=== PATIENT | male | born 1970 | race Caucasian/White ===

== ENCOUNTER 2017-03-27 18:41 | Inpatient (IN) | payer MEDICAID ==
[~2017-03-27] VITALS: Ht 162.6 cm; Wt 56.8 kg
--- NOTE | 2017-03-27 22:28 | ERA ---
ER Documentation Chief Complaint Date/Time DATE: 03/27/17 TIME: 22:27 Chief Complaint Headache HPI The patient is a 46-year-old male, presenting to the ER because of headache for 1 day. He is a very poor historian. He has been doing amphetamine. He denies chills, facial pain, neck pain, chest pain, abdominal pain, vomiting, dysuria, diarrhea. He denies smoking or drinking. Past medical history: Anemia, ventral hernia Past surgical history: None ROS All systems reviewed and are negative except as per history of present illness. Medications Home Meds Unable to Obtain Active Prescriptions or Reported Meds Allergies Allergies: Coded Allergies: No Known Drug Allergy (Verified Allergy, Unknown, 06/19/07) Physical Exam Vitals Vital Signs Date Time Temp Pulse Resp B/P Pulse Ox O2 Delivery O2 Flow Rate FiO2 03/28/17 01:00 98.3 88 16 106/61 100 Room Air 03/28/17 00:30 98.3 89 16 117/78 100 Room Air 03/27/17 19:02 103.7 125 18 141/91 97 Physical Exam Const: No acute distress. Head: Atraumatic. Eyes: Normal Conjunctiva. ENT: Normal External Ears, Nose and Mouth. Neck: Full range of motion. No meningismus. Resp: Clear to auscultation bilaterally. Cardio: Regular but tachycardic Abd: Soft, non distended, normal bowel sounds, non tender. Positive for umbilical hernia Skin: No petechiae or rashes. Back: No midline or flank tenderness. Ext: Right proximal forearm is edematous and erythematous, no crepitus Neur: Limited due to his condition Psych: Somnolent, confused Result Diagram: 03/27/17 2240 03/27/17 2240 Results 24 hrs Laboratory Tests Test 03/27/17 22:40 03/28/17 00:28 03/28/17 01:10 03/28/17 01:25 White Blood Count 21.310^3/ul Red Blood Count 5.1810^6/ul Hemoglobin 16.2g/dl Hematocrit 46.9% Mean Corpuscular Volume 90.5fl Mean Corpuscular Hemoglobin 31.3pg Mean Corpuscular Hemoglobin Concent 34.5g/dl Red Cell Distribution Width 15.0% Platelet Count 8710^3/UL Mean Platelet Volume 12.0fl Neutrophils % 75.0% Band Neutrophils % 11.0% Lymphocytes % 5.0% Monocytes % 8.0% Myelocytes % 1.0% Neutrophils # 16.010^3/ul Lymphocytes # 1.110^3/ul Monocytes # 1.710^3/ul Myelocytes # 0.2 Platelet Estimate PLT APPEAR DECREASED Prothrombin Time 15.5Sec Prothrombin Time Ratio 1.2 INR International Normalized Ratio 1.22 Activated Partial Thromboplast Time 32.4Sec Sodium Level 134mmol/L Potassium Level 3.6mmol/L Chloride Level 97mmol/L Carbon Dioxide Level 25mmol/L Anion Gap 16 Blood Urea Nitrogen 17mg/dl Creatinine 0.68mg/dl Glucose Level 124mg/dl Lactic Acid Level 2.1mmol/L 1.6mmol/L Calcium Level 9.1mg/dl Total Bilirubin 2.3mg/dl Direct Bilirubin 0.00mg/dl Indirect Bilirubin 2.3mg/dl Aspartate Amino Transf (AST/SGOT) 42IU/L Alanine Aminotransferase (ALT/SGPT) 33IU/L Alkaline Phosphatase 115IU/L Troponin I < 0.012ng/ml Total Protein 8.4g/dl Albumin 4.2g/dl Globulin 4.20g/dl Albumin/Globulin Ratio 1.00 Ethyl Alcohol Level < 10.0mg/dl CSF Glucose 70mg/dl CSF Total Protein 29mg/dl Urine Color LT. YELLOW Urine Clarity CLEAR Urine pH 6.0 Urine Specific Soso 1.025 Urine Ketones NEGATIVE Urine Nitrite NEGATIVE Urine Bilirubin NEGATIVE Urine Urobilinogen 0.2 E.U./dL Urine Leukocyte Esterase NEGATIVE Urine Hemoglobin NEGATIVE Urine Glucose NEGATIVE% Urine Total Protein NEGATIVE Urine Opiates Screen NEGATIVE Urine Barbiturates NEGATIVE Urine Amphetamines Screen POSITIVE Urine Benzodiazepines Screen NEGATIVE Urine Cocaine Screen NEGATIVE Urine Cannabinoids NEGATIVE Test 03/28/17 01:34 Bedside Urine pH (LAB) 5.5 Bedside Urine Protein (LAB) Negative Bedside Urine Glucose (UA) Negative Bedside Urine Ketones (LAB) Negative Bedside Urine Blood Trace-intact Bedside Urine Nitrite (LAB) Negative Bedside Urine Leukocyte Esterase (L Negative Current Medications Medications (Trade) Dose Ordered Sig/Ish Route PRN Reason Start Time Stop Time Status Last Admin Dose Admin Sodium Chloride (NS) 1,760 ml @ 1,760 mls/hr BOLUS X1 ONCE IV 03/27/17 23:00 03/27/17 23:59 DC 03/27/17 22:56 Acetaminophen (Tylenol Supp) 650 mg ONCE ONCE ME 03/27/17 23:00 03/27/17 23:01 DC Dexamethasone 10 mg 10 mg ONCE ONCE IV 03/28/17 01:30 03/28/17 01:31 DC 03/28/17 01:44 Ceftriaxone Sodium 50 ml @ 100 mls/hr ONCE ONCE IVPB 03/28/17 01:30 03/28/17 01:59 DC 03/28/17 02:15 Vancomycin HCl (Vancocin) 250 ml @ 125 mls/hr ONCE IVPB 03/28/17 01:30 03/28/17 03:29 Procedures/MDM [place] [id number] Radiology Main Line: [phone] DIAGNOSTIC IMAGING REPORT Patient: DEMETRI DEMPSEY : 1970 Age: 46 Sex: M MR #: [id number] DOS: 03/27/17 2239 Ordering MD: KILE MINAYA MD Location: E/R Room/Bed: PROCEDURE: XR Chest. CLINICAL INDICATION: Possible Sepsis TECHNIQUE: Single frontal view of the chest was obtained. COMPARISON: None available FINDINGS: The cardiomediastinal silhouette is normal size. Pulmonary vasculature is within normal limits. There is bibasilar atelectasis.. No signs of pleural fluid or pneumothorax are seen. The osseous structures and soft tissues are unremarkable. IMPRESSION: Hypoventilatory examination. Bibasilar atelectasis. No definite consolidation or edema. RPTAT: HBST .Yann Wen MD, Date Time Electronically viewed and signed by .Yann Wen MD, MD on 03/28/2017 00:16 .T/ CC: KIEL MINAYA MD [place] [id number] Radiology Main Line: [phone] DIAGNOSTIC IMAGING REPORT Patient: DEMETRI DEMPSEY : 1970 Age: 46 Sex: M MR #: [id number] DOS: 03/27/17 2239 Ordering MD: KIEL MINAYA MD Location: E/R Room/Bed: PROCEDURE: Noncontrast CT Head. CLINICAL INDICATION: Headache TECHNIQUE: Noncontrast CT of the head was obtained. The administered radiation dose was CTDI vol = 45 mGy, DLP = 810 mGy-cm. COMPARISON: No pertinent prior examinations were submitted for comparison. FINDINGS: The ventricles and cortical sulci are mildly enlarged. There is mild decreased attenuation within the periventricular and subcortical white matter compatible with chronic microvascular changes. There is no acute intracranial hemorrhage or extra-axial fluid collection. There is no mass effect. No midline shift is identified. There is no loss of chaparro-white differentiation to suggest acute infarction. The orbits are within normal limits. The paranasal sinuses are well aerated. No destructive osseous lesion is identified. IMPRESSION: No acute findings. Mild diffuse parenchymal volume loss and chronic microvascular changes. RPTAT: HIKT .Servando Canas MD, MD Date Time Electronically viewed and signed by .Servando Canas MD, MD on 03/28/2017 00:52 .T/ CC: KIEL MINAYA MD EKG: Read by emergency physician at 7:08 PM Rate/Rhythm: Sinus tachycardia 123 beats/min QRS, ST, T-waves: No ST elevation, no T inversion, right axis deviation Impression: Abnormal EKG EKG: Read by emergency physician at 10:41 PM Rate/Rhythm: Normal Sinus Rhythm 100 beats/min QRS, ST, T-waves: No ST elevation, no T inversion, right fonseca axis Impression: Abnormal EKG MEDICAL MAKING DECISION: The patient is a 46-year-old female, presenting with acute febrile illness of unclear etiology, associated with headache and encephalopathy, concerning for acute meningitis, acute severe sepsis, acute right forearm cellulitis. He was treated with Tylenol and for fever. He was treated with Decadron 10 mg IV 20 minutes prior to IV antibiotic to prevent neurological complication in case he has bacterial meningitis. He was then treated with Rocephin IV and vancomycin IV Admit MDM: Patient's infectious symptoms have not stabilized and the patient is at risk of rapid decompensation. The patient will be admitted for careful hydration, antibiotic therapy, and infectious source control. Severe Sepsis criteria: Infectious source: Unknown End organ damage indicated by: Lactate > 2.0 mmol/L Sepsis Management: Time of recognition of severe sepsis/septic shock:10:50 pm Within 3 hours of recognition: Blood cultures x 2 before broad-spectrum antibiotics: Yes 30 ml/kg NS bolus completed Initial lactate 2.1 Repeat lactate pending Critical Care: Critical care time 35 minutes Emergent fluid management while maintaining close respiratory support. Provision of immediate and broad-spectrum antibiotic therapy. Simultaneous assessment for possible sources in order to direct targeted therapy. Consideration for invasive and chemical support to prevent cardiopulmonary collapse. Septic Shock Assessment: Any lactic acid > 4.0 no Persistent hypotension (SBP < 90 or 40 mmHg drop, MAP < 65) despite 30 mL/kg IV fluid bolusno Lumbar Puncture by me: Patient consented, time out performed, sterilely prepped/draped, anesthetized locally. Anesthesia: 1% lidocaine locally Location: One interspace below the iliac crest Technique: 22 gauge needle with stylet for entry and removal of needle Results: Clear CSF fluid No post procedure complications, bleeding, numbness or weakness. Departure Diagnosis: Primary Impression: Severe sepsis Additional Impressions: Acute febrile illness Right forearm cellulitis Amphetamine abuse Condition: Critical Comments I discussed the findings with the patient. I discussed the patient with the on- call hospitalist Dr. Arnold who was made aware of the lab, the treatment, the patient condition. The patient is admitted to telemetry at 1:30 AM KIEL MINAYA MD March 27, 2017 22:28
[2017-03-27] MEDS ORDERED: SOD CHLORIDE 0.9% IV ONE (23:00)
[2017-03-27] MEDS ORDERED: ACETAMINOPHEN 650 MG SUPP PR ONE (23:00)
[2017-03-27 23:01] LABS: ADD SCAN DIFF NO
[2017-03-27 23:07] LABS: ABNORMAL IP MESSAGE 1; HEMATOCRIT 46.9 % (42.0-52.0); HEMOGLOBIN 16.2 g/dl (14.0-18.0); MEAN CORPUSCULAR HEMOGLOBIN 31.3 pg (29.0-33.0); MEAN CORPUSCULAR HGB CONC 34.5 g/dl (32.0-37.0); MEAN CORPUSCULAR VOLUME 90.5 fl (82.0-101.0); PLATELET COUNT 87 10^3/UL (140-415); RED BLOOD COUNT 5.18 10^6/ul (4.70-6.10); WHITE BLOOD COUNT 21.3 10^3/ul (4.8-10.8)
[2017-03-27 23:24] LABS: INR 1.22; PROTIME 15.5 Sec (12.2-14.2); PT RATIO 1.2
[2017-03-27 23:25] LABS: PARTIAL THROMBOPLASTIN TIME 32.4 Sec (25.0-35.0)
[2017-03-27 23:32] LABS: ALBUMIN 4.2 g/dl (3.3-4.9); CHLORIDE 97 mmol/L (97-110)
[2017-03-27 23:33] LABS: POTASSIUM 3.6 mmol/L (3.5-5.1); SODIUM 134 mmol/L (135-144)
[2017-03-27 23:35] LABS: ALANINE AMINOTRANSFERASE 33 IU/L (13-69); ALKALINE PHOSPHATASE 115 IU/L (42-121); ANION GAP 16 (8-16); ASPARTATE AMINO TRANSFERASE 42 IU/L (15-46); BILIRUBIN,INDIRECT 2.3 mg/dl (0-1.1); BILIRUBIN,TOTAL 2.3 mg/dl (0.2-1.3); BLOOD UREA NITROGEN 17 mg/dl (7-20); CARBON DIOXIDE 25 mmol/L (21-31); CREATININE 0.68 mg/dl (0.61-1.24); TOTAL PROTEIN 8.4 g/dl (6.1-8.1)
[2017-03-27 23:36] LABS: CALCIUM 9.1 mg/dl (8.4-10.2); GLUCOSE 124 mg/dl (70-220)
[2017-03-27 23:50] LABS: TROPONIN-I < 0.012 ng/ml (0.00-0.12)
[2017-03-28 00:05] LABS: LYMPHOCYTES # 1.1 10^3/ul (0.8-2.9); MONOCYTE # 1.7 10^3/ul (0.3-0.9); MYELOCYTES # 0.2
[2017-03-28 00:06] LABS: PLATELET ESTIMATE PLT APPEAR DECREASED
--- NOTE | 2017-03-28 00:16 | RADRPT ---
PROCEDURE: XR Chest. CLINICAL INDICATION: Possible Sepsis TECHNIQUE: Single frontal view of the chest was obtained. COMPARISON: None available FINDINGS: The cardiomediastinal silhouette is normal size. Pulmonary vasculature is within normal limits. Th ere is bibasilar atelectasis.. No signs of pleural fluid or pneumothorax are seen. The osseous structures and soft tissues are unre markable. IMPRESSION: Hypoventilatory examination. Bibasilar atelectasis. No definite consolidation or edema. RPTAT: HBST .Yann Wen MD, MD Date Time Electronically viewed and signed by .Yann Wen MD, on 03/28/2017 00:16 .T/
--- NOTE | 2017-03-28 00:52 | RADRPT ---
PROCEDURE: Noncontrast CT Head. CLINICAL INDICATION: Headache TECHNIQUE: Noncontrast CT of the head was obtained. The administered radiation dose was CTDI vol = 45 mGy, DLP = 810 mGy-cm. COMPARISON: No pertinent prior examinations were submitted for comparison. FINDINGS: The ventricles and cortical sulci are mildly enlarged. There is mild decreased attenuation within t he periventricular and subcortical white matter compatible with chronic microvascular changes. There is no acute intracranial hemorrhage or extra-axial fluid collection. There is no mass effect . No midline shift is identified. There is no loss of chaparro-white differentiation to suggest acute in farction. The orbits are within normal limits. The paranasal sinuses are well aerated. No destructive osseous lesion is identified. IMPRESSION: No acute findings. Mild diffuse parenchymal volume loss and chronic microvascular changes. RPTAT: HIKT .Servando Canas MD, MD Date Time Electronically viewed and signed by .Servando Canas MD, on 03/28/2017 00:52 .T/
[2017-03-28] MEDS ORDERED: VANCOMYCIN 1 GM (PMX) 250 ML IVPB SCH (01:30)
[2017-03-28] MEDS ORDERED: CEFTRIAXONE 2 GM/50 ML (PMX) 50 ML IVPB ONE (01:30)
[2017-03-28] MEDS ORDERED: DEXAMETHASONE 10 MG/ML 1 ML INJ IV ONE (01:30)
[2017-03-28 01:33] LABS: URINE BLOOD (Dip) POC Trace-intact (NEGATIVE)
[2017-03-28 01:56] LABS: # OF CELLS COUNTED 100
[2017-03-28 02:02] LABS: ADD UMIC NO; URINE BILIRUBIN (Dip) NEGATIVE (NEGATIVE); URINE BLOOD (Dip) NEGATIVE (NEGATIVE); URINE COLOR LT. YELLOW (YELLOW); URINE GLUCOSE (Dip) NEGATIVE (NEGATIVE); URINE KETONES (Dip) NEGATIVE (NEGATIVE); URINE LEUKOCYTE ESTERASE (Dip) NEGATIVE (NEGATIVE); URINE NITRITE (Dip) NEGATIVE (NEGATIVE); URINE TOTAL PROTEIN (Dip) NEGATIVE (NEGATIVE); URINE UROBILINOGEN (Dip) 0.2 E.U./dL (0.1-1.0)
[2017-03-28 02:25] LABS: GLUCOSE,CSF 70 mg/dl (50-80)
[2017-03-28 02:26] LABS: BARBITURATES NEGATIVE (NEGATIVE); BENZODIAZEPINES NEGATIVE (NEGATIVE); CANNABINOIDS NEGATIVE (NEGATIVE); COCAINE NEGATIVE (NEGATIVE); OPIATES NEGATIVE (NEGATIVE)
[2017-03-28 04:02] LABS: CSF COLOR PINKISH
[2017-03-28 04:03] LABS: CSF#TUBES REC'D 4
[2017-03-28 04:04] LABS: %CREANATED RBC CSF 0 %; CSF#TUBE COUNT TUBE#4
--- NOTE | 2017-03-28 06:25 | HP ---
Date/Time of Note Date/Time of Note DATE: 03/28/17 TIME: 06:18 Assessment/Plan VTE Prophylaxis VTE Prophylaxis Intervention: SCD's Lines/Catheters IV Catheter Type (from [facility], [place]): Peripheral IV Central line still needed: No Urinary Cath still in place: No Assessment/Plan Chief Complaint/Hosp Course This is a 46-year-old male is being admitted to telemetry floor for: #1 sepsis: Suspected meningitis versus endocarditis versus cellulitis. Patient was tachycardic and febrile. White blood cell count of 21 with a bandemia of 11. Patient has a history of IV drug use and he used amphetamines today before he came to the ER. Patient currently right now does not display any signs of nuchal rigidity. However he did state that he had a headache. CSF samples were drawn via lumbar puncture by the ED physician. Blood cultures urine cultures pending. Was given a dose of Vanco and ceftriaxone in the ED. Based on patient's history of IV drug use and current clinical condition. We will start him on empiric antibiotic coverage for suspected meningitis with vancomycin, ampicillin, and ceftriaxone. Will consult infectious disease. X- ray and CT scan did not show any acute findings. Will also order HIV, echocardiogram.Tylenol for fevers. #2 Leukocytosis: Possibility of meningitis versus bacteremia versus endocarditis versus cellulitis. Currently on empiric antibiotics. Will consult ID #[id number] Amphetamine abuse: Patient reports recent use of amphetamine via IV. #4 cellulitis of the right upper extremity: On empiric antibiotics #5 DVT and GI prophylaxis SCDs and acid fabio Problems: HPI/ROS Admit Date/Time Admit Date/Time 03/27/2017 Hx of Present Illness The patient is a 46-year-old male, presenting to the ER because of headache for 1 day. Patient is somnolent but easily arousable however he is a very poor historian. He reports IV drug use and recently used amphetamines as early as today. He denies chills, facial pain, neck pain, chest pain, abdominal pain, vomiting, dysuria, diarrhea. He denies smoking or drinking. Allergies: None Medications: None ROS Review of systems: Unable to obtain secondary to patient's clinical condition PMH/Family/Social Past Medical History Ventral hernia, anemia Past Surgical History Unable to obtain secondary to patient's clinical condition Family History Significant Family History: other (Unable to obtain secondary to patient's clinical condition) Social History Smoking Status: Current every day smoker Drug Use: other (IV drug use, amphetamine) Exam/Review of Systems Vital Signs Vitals Vital Signs Date Time Temp Pulse Resp B/P Pulse Ox O2 Delivery O2 Flow Rate FiO2 03/28/17 05:43 78 18 129/83 98 Room Air 03/28/17 01:00 98.3 Exam Exam General: Patient lying in bed, no acute distress, somnolent slightly difficult to arouse HEENT: Atraumatic, normocephalic. The pupils are equal, round and reactive. Extraocular motor are intact, poor dentition Neck: Supple with full range of motion. No rigidity or meningismus Chest: Nontender Lungs: Clear to auscultation bilaterally no crackles rales or wheezing Heart: Normal S1-S2, Regular rhythm and rate. No murmur, Abdomen: Soft , nontender, nondistended , bowel sounds are present. No guarding no rebound tenderness , No masses or organomegaly. No costovertebral temporal angle mass Extremities: right upper extremity erythema, warmth, redness Neurologic: Somnolent, slightly difficult to arouse. Patient can verbalize answers when vigorously awakened Additional Comments [place] [id number] Radiology Main Line: [phone] DIAGNOSTIC IMAGING REPORT Patient: DEMETRI DEMPSEY : 1970 Age: 46 Sex: M MR #: [id number] DOS: 03/27/17 2239 Ordering MD: KIEL MINAYA MD Location: E/R Room/Bed: PROCEDURE: XR Chest. CLINICAL INDICATION: Possible Sepsis TECHNIQUE: Single frontal view of the chest was obtained. COMPARISON: None available FINDINGS: The cardiomediastinal silhouette is normal size. Pulmonary vasculature is within normal limits. There is bibasilar atelectasis.. No signs of pleural fluid or pneumothorax are seen. The osseous structures and soft tissues are unremarkable. IMPRESSION: Hypoventilatory examination. Bibasilar atelectasis. No definite consolidation or edema. RPTAT: HBST .Yann Wen MD, MD Date Time Electronically viewed and signed by .Yann Wen MD, MD on 03/28/2017 00:16 .T/ CC: KIEL MINAYA MD [place] [id number] Radiology Main Line: [phone] DIAGNOSTIC IMAGING REPORT Patient: DEMETRI DEMPSEY : 1970 Age: 46 Sex: M MR #: [id number] DOS: 03/27/179 Ordering MD: KIEL MINAYA MD Location: E/R Room/Bed: PROCEDURE: Noncontrast CT Head. CLINICAL INDICATION: Headache TECHNIQUE: Noncontrast CT of the head was obtained. The administered radiation dose was CTDI vol = 45 mGy, DLP = 810 mGy-cm. COMPARISON: No pertinent prior examinations were submitted for comparison. FINDINGS: The ventricles and cortical sulci are mildly enlarged. There is mild decreased attenuation within the periventricular and subcortical white matter compatible with chronic microvascular changes. There is no acute intracranial hemorrhage or extra-axial fluid collection. There is no mass effect. No midline shift is identified. There is no loss of chaparro-white differentiation to suggest acute infarction. The orbits are within normal limits. The paranasal sinuses are well aerated. No destructive osseous lesion is identified. IMPRESSION: No acute findings. Mild diffuse parenchymal volume loss and chronic microvascular changes. RPTAT: HIKT .Servando Canas MD, Date Time Electronically viewed and signed by .Servando Canas MD, on 03/28/2017 00:52 .T/ CC: KIEL MINAYA MD Rate/Rhythm: Normal Sinus Rhythm 100 beats/min QRS, ST, T-waves: No ST elevation, no T inversion, right fonseca axis Labs Result Diagram: 03/27/17 2245 03/27/17 2240 Medications Medications Current Medications Ampicillin 100 ml @ 100 mls/hr Q6 IVPB ; Start 03/28/17 at 06:30; Status UNV Ceftriaxone Sodium (Rocephin) 50 ml @ 100 mls/hr BID IVPB ; Start 03/28/17 at 09 :00; Status UNV ADELAIDA HATFIELD March 28, 2017 06:25
[2017-03-28] MEDS ORDERED: VANCOMYCIN IV PER PHARMACY XX SCH (06:30)
[2017-03-28] MEDS ORDERED: ONDANSETRON 4 MG INJ IV PRN (06:30)
[2017-03-28] MEDS ORDERED: AMPICILLIN 2 GM/NS (PMX) 100 ML IVPB SCH (06:30)
[2017-03-28] MEDS ORDERED: NACL 0.9% 3 ML SYG IV SCH (06:30)
[2017-03-28] MEDS: SOD CHLORIDE 0.9% 1,000 ML IV SCH ×2 (06:46→18:51)
[2017-03-28] MEDS: FAMOTIDINE 20 MG INJ IV SCH ×2 (08:13→20:03)
[2017-03-28 08:25] LABS: ADD SCAN DIFF NO
[2017-03-28 08:43] LABS: ABNORMAL IP MESSAGE 1; BASOPHILS % 0.1 % (0.0-2.0); HEMATOCRIT 41.7 % (42.0-52.0); HEMOGLOBIN 14.6 g/dl (14.0-18.0); LYMPHOCYTES # 0.7 10^3/ul (0.8-2.9); LYMPHOCYTES % 3.6 % (15.0-51.0); MEAN CORPUSCULAR HEMOGLOBIN 31.8 pg (29.0-33.0); MEAN CORPUSCULAR VOLUME 90.8 fl (82.0-101.0); MEAN PLATELET VOLUME 11.8 fl (7.4-10.4); MONOCYTE # 0.3 10^3/ul (0.3-0.9); MONOCYTES % 1.7 % (0.0-11.0); NEUTROPHIL # 18.1 10^3/ul (1.6-7.5); NEUTROPHILS % 93.5 % (39.0-77.0); RED BLOOD COUNT 4.59 10^6/ul (4.70-6.10); RED CELL DISTRIBUTION WIDTH 14.9 % (11.5-14.5); WHITE BLOOD COUNT 19.3 10^3/ul (4.8-10.8)
[2017-03-28 08:46] LABS: ALBUMIN 3.4 g/dl (3.3-4.9); ALBUMIN/GLOBULIN RATIO 0.94; BILIRUBIN,INDIRECT 1.8 mg/dl (0-1.1); BILIRUBIN,TOTAL 1.8 mg/dl (0.2-1.3); CALCIUM 8.1 mg/dl (8.4-10.2); CREATININE 0.5 mg/dl (0.61-1.24); MAGNESIUM 1.6 mg/dl (1.7-2.5)
[2017-03-28 08:53] LABS: PLATELET COUNT 71 10^3/UL (140-415)
[2017-03-28] MEDS ORDERED: CEFTRIAXONE 2 GM/50 ML (PMX) 50 ML IVPB SCH (09:00)
[2017-03-28] MEDS ORDERED: VANCOMYCIN 850 MG in SOD CHLORIDE 0.9% 250 ML IVPB SCH (10:00)
[2017-03-28 13:16] VITALS: TEMP 97.9
--- NOTE | 2017-03-28 13:21 | CONS ---
DATE OF ADMISSION: 03/27/2017 DATE OF CONSULTATION: 03/28/2017 TYPE OF CONSULTATION: Infectious Disease. REASON FOR CONSULTATION: Antibiotic management. HISTORY OF PRESENT ILLNESS: Vignesh Maciel is a 46-year-old male who comes in with a h eadache of 1 day duration. The patient is somnolent but easily arousable. He reports IV drug use a nd recently used amphetamines as early as today. There is no fever or chills. No nausea, vomiting or diarrhea. PAST MEDICAL HISTORY: The patient has a ventral hernia and anemia. FAMILY HISTORY: Noncontributory. SOCIAL HISTORY: He is an every day smoker and uses IV drugs such as amphetamines. PHYSICAL EXAMINATION: GENERAL: The patient is in no acute distress, somnolent but arousable. SKIN: He has some cellulitis of the right upper extremity. HEENT: Within normal limits. NECK: Supple without nuchal rigidity. LYMPH NODES: None palpable. CHEST: Decreased breath sounds at the bases. HEART: Without murmur or gallop. ABDOMEN: Soft, nontender, without organosplenomegaly or masses. EXTREMITIES: As noted, right upper extremity erythema, warmth and redness. RECTAL AND GENITAL: Deferred. NEUROLOGICAL: No focal neurological abnormality. IMAGING: Chest x-ray shows bibasilar atelectasis, hypoventilatory examination. A CT scan of the he ad was done, no acute findings, mild diffuse parenchymal volume loss and chronic microvascular ayala es. ANCILLARY LABORATORY DATA: His white count on admission was 21.3, today it is 19.3, H and H of 14.6 and 41.7 and platelet count of 71,000. BUN and creatinine 15/0.5. Urine is negative for nitrite a nd leukocyte esterase. HIV negative. A spinal tap was done and showed only 2 white cells per high powered field and 1000 RBCs which could indicate just a traumatic tap since the CT scan was negative for any evidence of hemorrhage. IMPRESSION AND PLAN: The patient was placed on vancomycin, ceftriaxone and ampicillin. We probably can just continue him on the vancomycin. There is no evidence really meningitis at this point, he probably has cellulitis. I will dictate my findings to the hospitalist. Dictated By: MYLES GIBBS MD, JD/IVAN Conf#: [id number] [facility]#: [id number]
--- NOTE | 2017-03-28 15:39 | PN ---
DATE: 03/28/2017 SUBJECTIVE: Mr. Maciel remains stable this morning in the ER pending admission. Denies any fe simran or chills. No chest pain or palpitations. He is drowsy but arousable. PHYSICAL EXAMINATION: VITAL SIGNS: Temperature 97, pulse 67, blood pressure 112/78, O2 saturation 96% on room air. NECK: Supple. No JVD or lymphadenopathy. CARDIAC: S1, S2, no added sounds or murmurs. CHEST: Diminished air entry bilaterally. ABDOMEN: Soft, nontender. No guarding or rebound. EXTREMITIES: No cyanosis, clubbing or edema. NEUROLOGIC: He does have erythema of right arm in the antecubital fossa. LABORATORY DATA: White count 19.3, hemoglobin 14, platelets of 71. Lactic acid down to 1.5. INR 1 .22. Utox was positive for amphetamines. CSF showed normal glucose, low protein, 2 white cells, 50 % neutrophils. IMPRESSION AND PLAN: 1. Likely upper extremity cellulitis from recent methamphetamine injection site. 2. Unlikely to have meningitis. LP unremarkable. 3. Human immunodeficiency virus negative. 4. History of polysubstance abuse. PLAN: 1. Continue current antibiotics. 2. IV fluids. 3. Encourage p.o. intake. 4. Hopefully, discharge soon when cellulitis is improving. Dictated By: TWYLA NAVARRO/IVAN Conf#: [id number] DID#: [id number]
[2017-03-28 17:14] VITALS: BP 148/90; PULSE 75; RESP 16; Ht 162.6 cm; Wt 56.8 kg
--- NOTE | 2017-03-28 17:22 | RADRPT ---
Echocardiogram Report Patient Name: DEMETRI DEMPSEY Gender: Male Date: 1970 Study Date: 28-Mar-2017 Automatic Lathe Operator: IRINA [facility] Location: [facility] Ref. Physician: ADELAIDA HATFIELD Quality: Technically Difficult Study Procedures: Transthoracic echocardiogram with complete 2D, M-Mode, and doppler examination. Indications: IV DRUG USE, SEPSIS, R/O ENDOCARDITIS. 2D/M Mode Doppler Measurement Value Normal Ranges Measurement Value Normal Ranges AoR Diam MM 2.0 cm AV Peak Eliseo 1.3 m/sec LA/Ao MM 2.0 AV Peak PG 7.3 mmHg LA Dimen MM 3.9 cm LVOT Peak [place]ise[place] 1.1 m/sec LVIDd 2D 3.6 3.5 - 5.6 cm LVOT Peak PG 4.6 mmHg LVIDs 2D 2.4 2.1 - 4.1 cm MV E Peak Eliseo 0.7 m/sec LVPWd 2D 1.2 0.6 - 1.1 cm MV A Peak Eliseo 0.6 m/sec IVSd 2D 1.3 0.6 - 1.1 cm MV E/A 1.2 AoR Diam 2D 1.9 2.0 - 3.7 cm MV Decel Time 228 msec EDV 2D 55.8 cm3 MV Decel [place] 3 ESV 2D 13.6 cm3 MV E/A 1.2 LA Dimen 2D 3.9 2.3 - 4.0 cm Findings Left Ventricle: Normal left ventricular systolic function. Normal left ventricular cavity size. Mild concentric left ventricular hypertrophy. Ejection fraction is visually estimated at 65 %. Tissue Doppler/Mitral Doppler indices are consistent with impaired relaxation (Stage I diastolic dysfunction). Right Ventricle: Normal right ventricular size. Normal right ventricular systolic function. Left Atrium: The left atrium is normal in size. Right Atrium: The right atrium is normal in size. Mitral Valve: Mild mitral annular calcification. Trace mitral regurgitation. Aortic Valve: Normal appearance of the aortic valve. No significant aortic stenosis or insufficiency. Tricuspid Valve: Tricuspid valve not well visualized. Echo dense structure seen near the base of the atrial side of the leaflet. There is trace tricuspid regurgitation. Pulmonic Valve: There is trace pulmonic regurgitation. Pericardium: Normal pericardium with no significant pericardial effusion. Aorta: Normal aortic root. IVC: Normal size and normal respiratory collapse consistent with normal right atrial pressure. Conclusions Normal left ventricular systolic function. Normal left ventricular cavity size. Mild concentric left ventricular hypertrophy. Ejection fraction is visually estimated at 65 %. Tissue Doppler/Mitral Doppler indices are consistent with impaired relaxation (Stage I diastolic dysfunction). Normal right ventricular size. Normal right ventricular systolic function. The left atrium is normal in size. The right atrium is normal in size. Tricuspid valve not well visualized. Echo dense structure seen near the base of the atrial side of the leaflet differential includes vegetation, thrombus versus normal variant. There is trace tricuspid regurgitation. No significant valvular stenosis or regurgitation seen. Normal pericardium with no significant pericardial effusion. Electronically Signed By: Sotero Marie 28-Mar-2017 17:21:57 -0700 Patient Name: DEMETRI DEMPSEY Study Date: 28-Mar-2017 [id number]
--- NOTE | 2017-03-28 17:37 | CONS ---
Date/Time of Note Date/Time of Note DATE: 03/28/17 TIME: 17:32 Assessment/Plan Assessment/Plan Additional Assessment/Plan SIRS Cellulitis Preserved ejection fraction High concern for endocarditis IV drug abuse -Patient's echocardiogram reviewed, echo dense structure seen at the base of the tricuspid valve on the atrial side. Unfortunately, this location is not well-visualized with transesophageal echocardiogram. Valve leaflets are grossly normal with no significant regurgitation. Given the history, echo findings, high suspicion for endocarditis. Awaiting blood cultures, would continue antibiotics as per infectious disease. Consultation Date/Type/Reason Admit Date/Time 03/27/2017 Type of Consultation: cv Reason for Consultation Cardiac evaluation Hx of Present Illness This is a 46-year-old male with no significant past medical history who presents with altered mental status initially, fevers, chills and right upper extremity discomfort. Patient with alcohol use, marijuana use and IV methamphetamine use. He states he attempted to inject into a vein recently but was unable to and injected under the skin. Since then, he has been having pain in his right upper arm as well as fevers and chills over the past couple days. He otherwise denies any past medical history or any cardiac history. He was incarcerated for a number of years as well. 12 point review of systems was performed with all pertinent positives and negatives mentioned above and all else is negative Past Medical History Medical History: no pertinent history Past Surgical History Past Surgical Hx: no surgical history Family History Significant Family History: no pertinent family hx Social History Yes Smoking Status: Current every day smoker Drug Use: marijuana, other (IV drug use, amphetamine) Exam/Review of Systems Vital Signs Vitals Vital Signs Date Time Temp Pulse Resp B/P Pulse Ox O2 Delivery O2 Flow Rate FiO2 03/28/17 16:11 95 17 118/81 95 Room Air 03/28/17 13:16 97.9 Exam Sleeping but arousable, follows commands, no apparent distress Constitutional: alert Head: normocephalic Neck: supple Respiratory: clear to auscultation, normal air movement Cardiovascular: other (S1-S2 heard), regular rate and rhythm Gastrointestinal: bowel sounds, non-tender, other (No guarding), soft Extremities: other (Erythema right upper extremity, no lower extremity edema) Results Result Diagram: 03/28/17 0802 03/28/17 0802 Results 24 hrs Laboratory Tests Test 03/27/17 22:40 03/28/17 00:28 03/28/17 01:10 03/28/17 01:25 White Blood Count 21.3 H Red Blood Count 5.18 Hemoglobin 16.2 Hematocrit 46.9 Mean Corpuscular Volume 90.5 Mean Corpuscular Hemoglobin 31.3 Mean Corpuscular Hemoglobin Concent 34.5 Red Cell Distribution Width 15.0 H Platelet Count 87 L Mean Platelet Volume 12.0 H Neutrophils % 75.0 Band Neutrophils % 11.0 H Lymphocytes % 5.0 L Monocytes % 8.0 Myelocytes % 1.0 H Neutrophils # 16.0 H Lymphocytes # 1.1 Monocytes # 1.7 H Myelocytes # 0.2 Platelet Estimate PLT APPEAR DECREASED Prothrombin Time 15.5 H Prothrombin Time Ratio 1.2 INR International Normalized Ratio 1.22 Activated Partial Thromboplast Time 32.4 Sodium Level 134 L Potassium Level 3.6 Chloride Level 97 Carbon Dioxide Level 25 Anion Gap 16 Blood Urea Nitrogen 17 Creatinine 0.68 Glucose Level 124 Lactic Acid Level 2.1 1.6 Calcium Level 9.1 Total Bilirubin 2.3 H Direct Bilirubin 0.00 Indirect Bilirubin 2.3 H Aspartate Amino Transf (AST/SGOT) 42 Alanine Aminotransferase (ALT/SGPT) 33 Alkaline Phosphatase 115 Troponin I < 0.012 Total Protein 8.4 H Albumin 4.2 Globulin 4.20 H Albumin/Globulin Ratio 1.00 Ethyl Alcohol Level < 10.0 CSF Tubes Submitted 4 CSF Volume 5.0 CSF Appearance SLIGHTLY HAZY CSF Color PINKISH CSF WBC 2 CSF RBC 1000 H CSF Cell Count Tube # TUBE#4 CSF Total Cells Counted 100 CSF Neutrophils % 56 CSF Lymphocytes % 34 CSF Monocytes % 10 CSF Crenated Cells 0 CSF Glucose 70 CSF Total Protein 29 Urine Color LT. YELLOW Urine Clarity CLEAR Urine pH 6.0 Urine Specific [place] 1.025 Urine Ketones NEGATIVE Urine Nitrite NEGATIVE Urine Bilirubin NEGATIVE Urine Urobilinogen 0.2 E.U./dL Urine Leukocyte Esterase NEGATIVE Urine Hemoglobin NEGATIVE Urine Glucose NEGATIVE Urine Total Protein NEGATIVE Urine Opiates Screen NEGATIVE Urine Barbiturates NEGATIVE Urine Amphetamines Screen POSITIVE Urine Benzodiazepines Screen NEGATIVE Urine Cocaine Screen NEGATIVE Urine Cannabinoids NEGATIVE Test 03/28/17 01:34 03/28/17 04:15 03/28/17 08:02 Bedside Urine pH (LAB) 5.5 Bedside Urine Protein (LAB) Negative Bedside Urine Glucose (UA) Negative Bedside Urine Ketones (LAB) Negative Bedside Urine Blood Trace-intact H Bedside Urine Nitrite (LAB) Negative Bedside Urine Leukocyte Esterase (L Negative Lactic Acid Level 1.5 White Blood Count 19.3 H Red Blood Count 4.59 L Hemoglobin 14.6 Hematocrit 41.7 L Mean Corpuscular Volume 90.8 Mean Corpuscular Hemoglobin 31.8 Mean Corpuscular Hemoglobin Concent 35.0 Red Cell Distribution Width 14.9 H Platelet Count 71 L Mean Platelet Volume 11.8 H Neutrophils % 93.5 H Lymphocytes % 3.6 L Monocytes % 1.7 Eosinophils % 0.0 Basophils % 0.1 Nucleated Red Blood Cells % 0.0 Neutrophils # 18.1 H Lymphocytes # 0.7 L Monocytes # 0.3 Eosinophils # 0.0 Basophils # 0.0 Nucleated Red Blood Cells # 0.0 Sodium Level 134 L Potassium Level 4.0 Chloride Level 106 Carbon Dioxide Level 23 Anion Gap 9 # Blood Urea Nitrogen 15 Creatinine 0.50 L Glucose Level 151 Calcium Level 8.1 L Magnesium Level 1.6 L Total Bilirubin 1.8 H Direct Bilirubin 0.00 Indirect Bilirubin 1.8 H Aspartate Amino Transf (AST/SGOT) 29 Alanine Aminotransferase (ALT/SGPT) 35 Alkaline Phosphatase 94 Total Protein 7.0 # Albumin 3.4 Globulin 3.60 H Albumin/Globulin Ratio 0.94 HIV (1&2) Antibody NEGATIVE Medications Medications Current Medications Sodium Chloride (NS) 1,000 ml @ 80 mls/hr [id number] IV Last administered on 06:46; Admin Dose 80 MLS/HR; Start 03/28/17 at 06:15 Ondansetron HCl (Zofran Inj) 4 mg Q6H PRN IV NAUSEA AND/OR VOMITING; Start 03/28 at 06:30 Famotidine 20 mg 20 mg Q12 IV Last administered on 03/28/17 08:13; Admin Dose 20 MG; Start 03/28/17 at 09:00 Vancomycin HCl (Vancocin) 250 ml @ 125 mls/hr Q12H IVPB ; Start 03/28/17 at 21: 00 Procedures Procedures ECG demonstrates sinus rhythm at 100 bpm, normal QRS duration, no significant ischemic STT wave abnormalities Sotero Marie DO March 28, 2017 17:37
[2017-03-28] MEDS ORDERED: VANCOMYCIN 1 GM in NS 250 ML IVPB SCH (21:00)
[2017-03-28 21:27] VITALS: BP 117/67; RESP 17
[2017-03-28] MEDS: VANCOMYCIN 1 GM in NS 250 ML IVPB SCH (21:27)
[2017-03-29] MEDS: SOD CHLORIDE 0.9% 1,000 ML IV SCH ×2 (07:15→14:02)
[2017-03-29 09:00] VITALS: BP 135/78; RESP 18
[2017-03-29] MEDS: VANCOMYCIN 1 GM in NS 250 ML IVPB SCH ×2 (09:03→22:00)
[2017-03-29] MEDS: FAMOTIDINE 20 MG INJ IV SCH ×2 (09:04→21:57)
--- NOTE | 2017-03-29 09:18 | PN ---
Date/Time of Note Date/Time of Note DATE: 03/29/17 TIME: 09:16 Assessment/Plan VTE Prophylaxis VTE Prophylaxis Intervention: heparin Lines/Catheters IV [facility]ter Type (from [facility]): Peripheral IV Urinary Cath still in place: No Assessment/Plan Problems: (1) Methamphetamine abuse Status: Chronic Comment: This gentleman will be checked for exposure to hepatitis B and C. There is a real concern that he has given himself tricuspid valve endocarditis. Cardiology is on the case blood cultures are pending. Were very likely going to need a transesophageal echocardiogram of this evaluation. (2) Diastolic dysfunction Status: Chronic Comment: Noted. (3) Right forearm cellulitis Status: Acute Comment: The cellulitis is responding nicely to antibiotics. The question here is whether or not this is also endocarditis. (4) Severe sepsis Status: Acute Comment: He presented with severe sepsis with altered mental status tachycardia fevers markedly elevated white blood cell count. This is not yet resolved and given the somewhat slow resolution of quite concerned that the diagnosis is not cellulitis but is in fact endocarditis Subjective 24 Hr Interval Summary Free Text/Dictation Patient reports his headache is resolved. However he is having right goers and sweats. Constitutional: chills, diaphoresis Respiratory: no complaints Cardiovascular: no complaints Gastrointestinal: no complaints Genitourinary: no complaints Exam/Review of Systems Vital Signs Vitals Vital Signs Date Time Temp Pulse Resp B/P Pulse Ox O2 Delivery O2 Flow Rate FiO2 03/28/17 21:27 97.4 83 17 117/67 100 03/28/17 17:14 Room Air Intake and Output 03/28/17 03/28/17 03/29/17 15:00 23:00 07:00 Intake Total 250 ml 1450 ml Output Total 800 ml Balance 250 ml 650 ml Exam Constitutional: alert, oriented Neck: non-tender, supple Respiratory: clear to auscultation, normal air movement Cardiovascular: nl pulses, other (See echo report and cardiology consult note) , regular rate and rhythm Results Result Diagram: 03/28/17 0802 03/28/17 0802 Results 24 hrs Laboratory Tests Test 03/29/17 05:35 Hemoglobin A1c 5.1 Medications Medications Current Medications Sodium Chloride (NS) 1,000 ml @ 80 mls/hr [id number] IV Last administered on t 18:51; Admin Dose 80 MLS/HR; Start 5/5/17 at 06:15 Ondansetron HCl (Zofran Inj) 4 mg Q6H PRN IV NAUSEA AND/OR VOMITING; Start 03/28 at 06:30 Famotidine 20 mg 20 mg Q12 IV Last administered on 03/28/17 20:03; Admin Dose 20 MG; Start 03/28/17 at 09:00 Vancomycin HCl (Vancocin) 250 ml @ 125 mls/hr Q12H IVPB Last administered on 21:27; Admin Dose 125 MLS/HR; Start 03/28/17 at 21:00 KYLEE MATTHEW MD March 29, 2017 09:18
[2017-03-29] MEDS ORDERED: CEFTRIAXONE 2 GM/50 ML (PMX) 50 ML IVPB SCH (20:00)
[2017-03-29 21:55] VITALS: BP 121/77; PULSE 65; RESP 18
[2017-03-30] MEDS: CEFTRIAXONE 2 GM/NS 50 ML IVPB SCH (00:42)
--- NOTE | 2017-03-30 04:17 | PN ---
DATE: 03/29/2017 SUBJECTIVE: No acute changes. The patient is alert, lying comfortably in bed, complaining of right upper extremity pain. No labs this morning. MICROBIOLOGY: Blood, urine culture, and CSF cultures negative. ANTIMICROBIALS: The patient is on IV vancomycin. OBJECTIVE: GENERAL: Well-developed, well-nourished, middle-aged man who is alert, in no distress. HEENT: Head atraumatic, normocephalic. Sclerae anicteric. Buccal mucosa dry. NECK: Supple, trachea midline. CHEST: Rise symmetrical. Breath sounds clear. HEART: S1, S2. ABDOMEN: Soft, bowel tones present. EXTREMITIES: With right upper extremity edema and erythema. ASSESSMENT: 1. Systemic inflammatory response syndrome with fevers and leukocytosis. 2. Right upper extremity cellulitis secondary to self injection. 3. Polysubstance abuse. 4. Status post encephalopathy. 5. Questionable tricuspid valve vegetation, as per 2D echo. PLAN: We are going to continue the patient on vancomycin, add Rocephin, keep right upper extremity elevated on 3 pillows, consider JOLANTA, and follow cardiology recommendations. Dictated By: CJ THOMPSON AUXILIARY ENGINEER for MYLES KELLY/NTS Conf#: [id number] DID#: [id number]
[2017-03-30] MEDS: SOD CHLORIDE 0.9% 1,000 ML IV SCH (05:02)
[2017-03-30] MEDS ORDERED: VANCOMYCIN 1.5 GM in SOD CHLORIDE 0.9% 250 ML IVPB SCH (06:00)
[2017-03-30 08:05] VITALS: BP 131/83; RESP 18
[2017-03-30] MEDS: FAMOTIDINE 20 MG INJ IV SCH (08:06)
--- NOTE | 2017-03-30 13:03 | PN ---
Date/Time of Note Date/Time of Note DATE: 03/30/17 TIME: 13:02 Assessment/Plan VTE Prophylaxis VTE Prophylaxis Intervention: ambulation Lines/Catheters IV [facility]atheter Type (from [facility]): Peripheral IV Urinary Cath still in place: No Assessment/Plan Problems: (1) Tricuspid valve vegetation Status: Acute Comment: As per cardiology for 1 to do further evaluation. I am not comfortable that negative blood cultures would be the definitive answer here. I will repeat the blood cultures but he probably should be admitted (2) Severe sepsis Status: Acute Comment: He is improving with IV antibiotics and aggressive therapy (3) Right forearm cellulitis Status: Acute Comment: Improving with IV antibiotic (4) Diastolic dysfunction Status: Chronic Comment: Noted (5) Methamphetamine abuse Status: Chronic Comment: Counseled will have social work offer rehab services. Please note hep B and C and HIV serologies are negative Subjective 24 Hr Interval Summary Free Text/Dictation Patient is in the shower at this time. Reports doing well Exam/Review of Systems Vital Signs Vitals Vital Signs Date Time Temp Pulse Resp B/P Pulse Ox O2 Delivery O2 Flow Rate FiO2 03/30/17 08:05 97.4 62 18 131/83 97 03/29/17 21:55 Room Air Intake and Output 03/29/17 03/29/17 03/30/17 15:00 23:00 07:00 Intake Total 1060 ml 2060 ml Output Total 750 ml Balance 310 ml 2060 ml Exam Constitutional: alert, oriented Respiratory: clear to auscultation, normal air movement Cardiovascular: nl pulses, regular rate and rhythm Results Result Diagram: 03/28/17 0802 03/28/17 0802 Results 24 hrs Laboratory Tests Test 03/29/17 14:05 03/29/17 20:11 Hepatitis B Surface Antigen NEGATIVE Hepatitis C Antibody NEGATIVE Vancomycin Level Trough 5.6 L Medications Medications Current Medications Sodium Chloride (NS) 1,000 ml @ 80 mls/hr [id number] IV Last administered on 05:02; Admin Dose 80 MLS/HR; Start 03/28/17 at 06:15 Ondansetron HCl 4 mg 4 mg Q6H PRN IV NAUSEA AND/OR VOMITING; Start 03/28/17 at 06:30 Ceftriaxone Sodium 50 ml @ 100 mls/hr Q24H IVPB Last administered on 5/7/17at 00:42; Admin Dose 100 MLS/HR; Start 03/30/17 at 01:00 Vancomycin HCl (Vancocin) 250 ml @ 125 mls/hr Q8H IVPB ; Start 03/30/17 at 14:00 Famotidine (Pepcid) 20 mg Q12 PO ; Start 03/30/17 at 21:00 Miscellaneous Information (*Rx Drug Level Order Reminder*) VANCOMYCIN TROUGH 03/31 AT 0500 ONCE ONCE XX ; Start 03/31/17 at 05:00; Stop 03/31/17 at 05:01 KYLEE MATTHEW MD March 30, 2017 13:03
[2017-03-30] MEDS: VANCOMYCIN 1 GM in NS 250 ML IVPB SCH ×2 (14:46→22:07)
--- NOTE | 2017-03-30 15:59 | CONS ---
Date/Time of Note Date/Time of Note DATE: 03/30/17 TIME: 15:58 Assessment/Plan Assessment/Plan Chief Complaint/Hosp Course SUBJECTIVE: No acute changes. The patient is alert, feels better, no fevers MICROBIOLOGY: Blood, urine culture, and CSF cultures negative. ANTIMICROBIALS: The patient is on IV vancomycin. OBJECTIVE: GENERAL: Well-developed, well-nourished, middle-aged man who is alert , in no distress. HEENT: Head atraumatic, normocephalic. Sclerae anicteric. Buccal mucosa dry. NECK: Supple, trachea midline. CHEST: Rise symmetrical. Breath sounds clear. HEART: S1, S2. ABDOMEN: Soft, bowel tones present. EXTREMITIES: With right upper extremity edema and erythema. ASSESSMENT: 1. Systemic inflammatory response syndrome with fevers and leukocytosis. 2. Right upper extremity cellulitis secondary to self injection. 3. Polysubstance abuse. 4. Status post encephalopathy. 5. Tricuspid valve vegetation, as per 2D echo report. PLAN: Clinically stable, continue abx, RUE elevation, needs JOLANTA==> will dw cardiology DW staff Problems: Consultation Date/Type/Reason Admit Date/Time March 28, 2017 at 09:59 Initial Consult Date Type of Consultation: ID Exam/Review of Systems Vital Signs Vitals Vital Signs Date Time Temp Pulse Resp B/P Pulse Ox O2 Delivery O2 Flow Rate FiO2 03/30/17 08:05 97.4 62 18 131/83 97 03/29/17 21:55 Room Air Intake and Output 03/29/17 03/29/17 03/30/17 15:00 23:00 07:00 Intake Total 1060 ml 2060 ml Output Total 750 ml Balance 310 ml 2060 ml Results Result Diagram: 03/28/17 0802 03/28/17 0802 Results 24 hrs Laboratory Tests Test 03/29/17 20:11 Vancomycin Level Trough 5.6 L Medications Medications Current Medications Sodium Chloride (NS) 1,000 ml @ 80 mls/hr [id number] IV Last administered on t 05:02; Admin Dose 80 MLS/HR; Start 03/28/17 at 06:15 Ondansetron HCl 4 mg 4 mg Q6H PRN IV NAUSEA AND/OR VOMITING; Start 03/28/17 at 06:30 Ceftriaxone Sodium 50 ml @ 100 mls/hr Q24H IVPB Last administered on 03/30/17 00:42; Admin Dose 100 MLS/HR; Start 03/30/17 at 01:00 Vancomycin HCl (Vancocin) 250 ml @ 125 mls/hr Q8H IVPB Last administered on 14:46; Admin Dose 125 MLS/HR; Start 03/30/17 at 14:00 Famotidine (Pepcid) 20 mg Q12 PO ; Start 03/30/17 at 21:00 Miscellaneous Information (*Rx Drug Level Order Reminder*) VANCOMYCIN TROUGH 03/31 AT 0500 ONCE ONCE XX ; Start 03/31/17 at 05:00; Stop 03/31/17 at 05:01 CJ THOMPSON NP March 30, 2017 15:59
[2017-03-30] MEDS: NICOTINE (14 MG/24 HR) PATCH TRANSDERM SCH (17:10)
[2017-03-30 20:14] VITALS: BP 118/58; RESP 18
[2017-03-30] MEDS: morphine 2 MG INJ IV PRN (20:33)
[2017-03-30] MEDS: FAMOTIDINE 20 MG TAB PO SCH (20:33)
[2017-03-31] VITALS (9 sets, daily range): BP systolic 110–153; BP diastolic 64–97; PULSE 75–89; RESP 14–23
[2017-03-31] MEDS: CEFTRIAXONE 2 GM/NS 50 ML IVPB SCH (01:12)
[2017-03-31 05:06] LABS: ADD SCAN DIFF NO
[2017-03-31 05:14] LABS: ABNORMAL IP MESSAGE 1; BASOPHIL # 0.1 10^3/ul (0.0-0.1); BASOPHILS % 0.8 % (0.0-2.0); EOSINOPHILS # 0.2 10^3/ul (0.0-0.5); EOSINOPHILS % 2.3 % (0.0-7.0); HEMATOCRIT 45.1 % (42.0-52.0); HEMOGLOBIN 15.5 g/dl (14.0-18.0); LYMPHOCYTES # 1.5 10^3/ul (0.8-2.9); LYMPHOCYTES % 19.6 % (15.0-51.0); MEAN CORPUSCULAR HEMOGLOBIN 31.2 pg (29.0-33.0); MEAN CORPUSCULAR HGB CONC 34.4 g/dl (32.0-37.0); MEAN CORPUSCULAR VOLUME 90.7 fl (82.0-101.0); MEAN PLATELET VOLUME 11.1 fl (7.4-10.4); MONOCYTE # 0.6 10^3/ul (0.3-0.9); MONOCYTES % 7.4 % (0.0-11.0); NEUTROPHIL # 4.9 10^3/ul (1.6-7.5); NEUTROPHILS % 65.5 % (39.0-77.0); PLATELET COUNT 84 10^3/UL (140-415); RED BLOOD COUNT 4.97 10^6/ul (4.70-6.10); RED CELL DISTRIBUTION WIDTH 14.7 % (11.5-14.5); WHITE BLOOD COUNT 7.5 10^3/ul (4.8-10.8)
[2017-03-31 05:25] LABS: ALBUMIN 3.3 g/dl (3.3-4.9)
[2017-03-31 05:26] LABS: POTASSIUM 3.8 mmol/L (3.5-5.1)
[2017-03-31 05:28] LABS: ALBUMIN/GLOBULIN RATIO 0.86; BILIRUBIN,INDIRECT 0.5 mg/dl (0-1.1); BILIRUBIN,TOTAL 0.5 mg/dl (0.2-1.3); CREATININE 0.59 mg/dl (0.61-1.24); TOTAL PROTEIN 7.1 g/dl (6.1-8.1)
[2017-03-31 05:29] LABS: CALCIUM 8.6 mg/dl (8.4-10.2)
[2017-03-31] MEDS: VANCOMYCIN 1 GM in NS 250 ML IVPB SCH (05:49)
[2017-03-31] MEDS: NICOTINE (14 MG/24 HR) PATCH TRANSDERM SCH (08:53)
[2017-03-31] MEDS: FAMOTIDINE 20 MG TAB PO SCH ×2 (08:53→21:35)
[2017-03-31] MEDS: morphine 2 MG INJ IV PRN ×2 (08:55→21:37)
[2017-03-31] MEDS: SOD CHLORIDE 0.9% 1,000 ML IV SCH ×2 (08:59→09:17)
--- NOTE | 2017-03-31 11:55 | CONS ---
Date/Time of Note Date/Time of Note DATE: 03/31/17 TIME: 11:54 Assessment/Plan Assessment/Plan Additional Assessment/Plan SIRS Cellulitis Preserved ejection fraction High concern for endocarditis IV drug abuse -Patient planned for transesophageal echocardiogram today. Antibiotics as per infectious disease Consultation Date/Type/Reason Admit Date/Time March 28, 2017 at 09:59 Initial Consult Date Type of Consultation: cv 24 HR Interval Summary Free Text/Dictation Denies chest pain, shortness of breath or palpitations Exam/Review of Systems Vital Signs Vitals Vital Signs Date Time Temp Pulse Resp B/P Pulse Ox O2 Delivery O2 Flow Rate FiO2 03/31/17 11:29 75 18 153/97 97 Room Air 03/30/17 20:14 98.1 Intake and Output 03/30/17 03/30/17 03/31/17 15:00 23:00 07:00 Intake Total 250 ml 2130 ml 700 ml Balance 250 ml 2130 ml 700 ml Exam No apparent distress Constitutional: alert, oriented Head: normocephalic Neck: supple Respiratory: clear to auscultation, normal air movement Cardiovascular: other (S1-S2 heard), regular rate and rhythm Gastrointestinal: bowel sounds, non-tender, soft Extremities: other (No edema) Results Result Diagram: 03/31/17 0435 03/31/17 0435 Results 24 hrs Laboratory Tests Test 03/31/17 04:35 White Blood Count 7.5 # Red Blood Count 4.97 Hemoglobin 15.5 Hematocrit 45.1 Mean Corpuscular Volume 90.7 Mean Corpuscular Hemoglobin 31.2 Mean Corpuscular Hemoglobin Concent 34.4 Red Cell Distribution Width 14.7 H Platelet Count 84 L Mean Platelet Volume 11.1 H Neutrophils % 65.5 Lymphocytes % 19.6 Monocytes % 7.4 Eosinophils % 2.3 Basophils % 0.8 Nucleated Red Blood Cells % 0.0 Neutrophils # 4.9 Lymphocytes # 1.5 Monocytes # 0.6 Eosinophils # 0.2 Basophils # 0.1 Nucleated Red Blood Cells # 0.0 Erythrocyte Sedimentation Rate 35 H Sodium Level 137 Potassium Level 3.8 Chloride Level 102 Carbon Dioxide Level 23 Anion Gap 16 Blood Urea Nitrogen 15 Creatinine 0.59 L Glucose Level 96 Calcium Level 8.6 Total Bilirubin 0.5 Direct Bilirubin 0.00 Indirect Bilirubin 0.5 Aspartate Amino Transf (AST/SGOT) 33 Alanine Aminotransferase (ALT/SGPT) 41 Alkaline Phosphatase 101 Total Protein 7.1 Albumin 3.3 Globulin 3.80 H Albumin/Globulin Ratio 0.86 Vancomycin Level Trough 12.0 Medications Medications Current Medications Sodium Chloride (NS) 1,000 ml @ 80 mls/hr [id number] IV Last administered on 09:17; Admin Dose 80 MLS/HR; Start 03/28/17 at 06:15 Ondansetron HCl 4 mg 4 mg Q6H PRN IV NAUSEA AND/OR VOMITING; Start 03/28/17 at 06:30 Ceftriaxone Sodium (Rocephin) 50 ml @ 100 mls/hr Q24H IVPB Last administered on 03/31/17 01:12; Admin Dose 100 MLS/HR; Start 03/30/17 at 01:00 Famotidine (Pepcid) 20 mg Q12 PO Last administered on 03/31/17 08:53; Admin Dose 20 MG; Start 03/30/17 at 21:00 Nicotine (Nicoderm 14 Mg/ 24hr) 1 patch DAILY TRANSDERM Last administered on 08:53; Admin Dose 1 PATCH; Start 03/30/17 at 16:30 Morphine Sulfate 2 mg 2 mg Q4H PRN IV PAIN Last administered on 03/31/17 08:55 ; Admin Dose 2 MG; Start 03/30/17 at 20:30 Vancomycin HCl/ Sodium Chloride (Vancocin/NS) 250 ml @ 83.333 mls/ hr Q8H IVPB ; Start 03/31/17 at 14:00 Miscellaneous Information (*Rx Drug Level Order Reminder*) VANCOMYCIN TROUGH 04/01 AT 1300 ONCE ONCE XX ; Start 04/01/17 at 13:00; Stop 04/01/17 at 13:01 Sotero Marie DO March 31, 2017 11:55
[2017-03-31] MEDS ORDERED: PROPOFOL 20 ML ONE ×2 (11:56→12:26)
[2017-03-31] MEDS ORDERED: ONDANSETRON 4 MG INJ IV PRN (12:00)
[2017-03-31] MEDS ORDERED: FENTAnyl 50 MCG/ML VIAL IV PRN (12:00)
[2017-03-31] MEDS ORDERED: MIDAZOLAM 1 MG/ML 2 ML INJ IV PRN (12:00)
[2017-03-31] MEDS ORDERED: MEPERIDINE 25 MG INJ IV PRN (12:00)
[2017-03-31] MEDS ORDERED: DIPHENHYDRAMINE 50 MG INJ IV PRN (12:00)
[2017-03-31] MEDS ORDERED: METOCLOPRAMIDE 10 MG INJ IV PRN (12:00)
--- NOTE | 2017-03-31 12:11 | PN ---
Date/Time of Note Date/Time of Note DATE: 03/31/17 TIME: 12:07 Assessment/Plan VTE Prophylaxis VTE Prophylaxis Intervention: LMWH Lines/Catheters [facility] Type [facility] Peripheral IV Urinary Cath still in place: No Assessment/Plan Chief Complaint/Hosp Course Subjective: Events noted Objective: Vital signs stable Physical examination. Deferred- having CT Assessment and plan 1. SIRS suspected sepsis. Source endocarditis vs sepsis. Stable, check JOLANTA/ blood cx. 2. Rt upper extremity cellulitis 3. Chr IVDA 4. Substance abuse: Amphetamines, tobacco, possible alcohol 5. Ftt/homeless. Placement? If + endocarditis, may need PICC/IV atb's. 6. Anemia 7. Ventral hernia Problems: Exam/Review of Systems Vital Signs Vitals Vital Signs Date Time Temp Pulse Resp B/P Pulse Ox O2 Delivery O2 Flow Rate FiO2 03/31/17 11:29 75 18 153/97 97 Room Air 03/30/17 20:14 98.1 Intake and Output 03/30/17 03/30/17 03/31/17 15:00 23:00 07:00 Intake Total 250 ml 2130 ml 700 ml Balance 250 ml 2130 ml 700 ml Results Result Diagram: 03/31/17 0435 03/31/17 0435 Results 24 hrs Laboratory Tests Test 03/31/17 04:35 White Blood Count 7.5 # Red Blood Count 4.97 Hemoglobin 15.5 Hematocrit 45.1 Mean Corpuscular Volume 90.7 Mean Corpuscular Hemoglobin 31.2 Mean Corpuscular Hemoglobin Concent 34.4 Red Cell Distribution Width 14.7 H Platelet Count 84 L Mean Platelet Volume 11.1 H Neutrophils % 65.5 Lymphocytes % 19.6 Monocytes % 7.4 Eosinophils % 2.3 Basophils % 0.8 Nucleated Red Blood Cells % 0.0 Neutrophils # 4.9 Lymphocytes # 1.5 Monocytes # 0.6 Eosinophils # 0.2 Basophils # 0.1 Nucleated Red Blood Cells # 0.0 Erythrocyte Sedimentation Rate 35 H Sodium Level 137 Potassium Level 3.8 Chloride Level 102 Carbon Dioxide Level 23 Anion Gap 16 Blood Urea Nitrogen 15 Creatinine 0.59 L Glucose Level 96 Calcium Level 8.6 Total Bilirubin 0.5 Direct Bilirubin 0.00 Indirect Bilirubin 0.5 Aspartate Amino Transf (AST/SGOT) 33 Alanine Aminotransferase (ALT/SGPT) 41 Alkaline Phosphatase 101 Total Protein 7.1 Albumin 3.3 Globulin 3.80 H Albumin/Globulin Ratio 0.86 Vancomycin Level Trough 12.0 Medications Medications Current Medications Sodium Chloride (NS) 1,000 ml @ 80 mls/hr [id number] IV Last administered on 09:17; Admin Dose 80 MLS/HR; Start 03/28/17 at 06:15 Ondansetron HCl 4 mg 4 mg Q6H PRN IV NAUSEA AND/OR VOMITING; Start 03/28/17 at 06:30 Ceftriaxone Sodium (Rocephin) 50 ml @ 100 mls/hr Q24H IVPB Last administered on 03/31/17 01:12; Admin Dose 100 MLS/HR; Start 03/30/17 at 01:00 Famotidine (Pepcid) 20 mg Q12 PO Last administered on 03/31/17 08:53; Admin Dose 20 MG; Start 03/30/17 at 21:00 Nicotine (Nicoderm 14 Mg/ 24hr) 1 patch DAILY TRANSDERM Last administered on 08:53; Admin Dose 1 PATCH; Start 03/30/17 at 16:30 Morphine Sulfate 2 mg 2 mg Q4H PRN IV PAIN Last administered on 03/31/17 08:55 ; Admin Dose 2 MG; Start 03/30/17 at 20:30 Vancomycin HCl/ Sodium Chloride (Vancocin/NS) 250 ml @ 83.333 mls/ hr Q8H IVPB ; Start 03/31/17 at 14:00 Miscellaneous Information (*Rx Drug Level Order Reminder*) VANCOMYCIN TROUGH 04/01 AT 1300 ONCE ONCE XX ; Start 04/01/17 at 13:00; Stop 04/01/17 at 13:01 RONI MCINTOSH MD March 31, 2017 12:11
--- NOTE | 2017-03-31 12:29 | CONS ---
Date/Time of Note Date/Time of Note DATE: 03/31/17 TIME: 12:28 Assessment/Plan Assessment/Plan Chief Complaint/Hosp Course SUBJECTIVE: No acute changes. The patient is alert, feels better, no fevers MICROBIOLOGY: Blood, urine culture, and CSF cultures negative. ANTIMICROBIALS: The patient is on IV vancomycin and Rocephin. OBJECTIVE: GENERAL: Well-developed, well-nourished, middle-aged man who is alert , in no distress. HEENT: Head atraumatic, normocephalic. Sclerae anicteric. Buccal mucosa dry. NECK: Supple, trachea midline. CHEST: Rise symmetrical. Breath sounds clear. HEART: S1, S2. ABDOMEN: Soft, bowel tones present. EXTREMITIES: With right upper extremity edema and erythema. ASSESSMENT: 1. Systemic inflammatory response syndrome with fevers and leukocytosis. 2. Right upper extremity cellulitis secondary to self injection. 3. Polysubstance abuse. 4. Status post encephalopathy. 5. Tricuspid valve vegetation per 2D echo report. PLAN: Clinically stable, continue abx, pending JOLANTA==> difficult situation as pt will need senior living IV abx. PICC is not a good option 2 to IVDA, consider placement DW staff DW Dr Marie Problems: Consultation Date/Type/Reason Admit Date/Time March 28, 2017 at 09:59 Type of Consultation: id Exam/Review of Systems Vital Signs Vitals Vital Signs Date Time Temp Pulse Resp B/P Pulse Ox O2 Delivery O2 Flow Rate FiO2 03/31/17 12:17 86 20 113/71 98 Nasal Cannula 3.0 03/30/17 20:14 98.1 Intake and Output 03/30/17 03/30/17 03/31/17 15:00 23:00 07:00 Intake Total 250 ml 2130 ml 700 ml Balance 250 ml 2130 ml 700 ml Results Result Diagram: 03/31/17 0435 03/31/17 0435 Results 24 hrs Laboratory Tests Test 03/31/17 04:35 White Blood Count 7.5 # Red Blood Count 4.97 Hemoglobin 15.5 Hematocrit 45.1 Mean Corpuscular Volume 90.7 Mean Corpuscular Hemoglobin 31.2 Mean Corpuscular Hemoglobin Concent 34.4 Red Cell Distribution Width 14.7 H Platelet Count 84 L Mean Platelet Volume 11.1 H Neutrophils % 65.5 Lymphocytes % 19.6 Monocytes % 7.4 Eosinophils % 2.3 Basophils % 0.8 Nucleated Red Blood Cells % 0.0 Neutrophils # 4.9 Lymphocytes # 1.5 Monocytes # 0.6 Eosinophils # 0.2 Basophils # 0.1 Nucleated Red Blood Cells # 0.0 Erythrocyte Sedimentation Rate 35 H Sodium Level 137 Potassium Level 3.8 Chloride Level 102 Carbon Dioxide Level 23 Anion Gap 16 Blood Urea Nitrogen 15 Creatinine 0.59 L Glucose Level 96 Calcium Level 8.6 Total Bilirubin 0.5 Direct Bilirubin 0.00 Indirect Bilirubin 0.5 Aspartate Amino Transf (AST/SGOT) 33 Alanine Aminotransferase (ALT/SGPT) 41 Alkaline Phosphatase 101 Total Protein 7.1 Albumin 3.3 Globulin 3.80 H Albumin/Globulin Ratio 0.86 Vancomycin Level Trough 12.0 Medications Medications Current Medications Ondansetron HCl 4 mg 4 mg Q6H PRN IV NAUSEA AND/OR VOMITING; Start 03/28/17 at 06:30 Ceftriaxone Sodium (Rocephin) 50 ml @ 100 mls/hr Q24H IVPB Last administered on 03/31/17 01:12; Admin Dose 100 MLS/HR; Start 03/30/17 at 01:00 Nicotine 1 patch 1 patch DAILY TRANSDERM Last administered on 03/31/17 08:53; Admin Dose 1 PATCH; Start 03/30/17 at 16:30 Vancomycin HCl/ Sodium Chloride (Vancocin/NS) 250 ml @ 83.333 mls/ hr Q8H IVPB ; Start 03/31/17 at 14:00 Miscellaneous Information (*Rx Drug Level Order Reminder*) VANCOMYCIN TROUGH 04/01 AT 1300 ONCE ONCE XX ; Start 04/01/17 at 13:00; Stop 04/01/17 at 13:01 Famotidine (Pepcid) 20 mg HS PO ; Start 03/31/17 at 21:00 Morphine Sulfate (morphine) 2 mg Q6 PRN IV PAIN; Start 03/31/17 at 18:00 Thiamine HCl (Vitamin B1) 100 mg DAILY PO ; Start 03/31/17 at 12:30 Lactobacillus Acidophilus/ Rhamnosus (Culturelle) 1 cap BID PO ; Start 03/31/17 at 21:00 Bisacodyl (Dulcolax) 10 mg DAILY PRN PO CONSTIPATION; Start 03/31/17 at 12:30 Acetaminophen/ Hydrocodone Bitart ([place] (10/325)) 1 tab Q4H PRN PO PAIN; Start 03/31/17 at 12:30 Enoxaparin Sodium (Lovenox) 40 mg DAILY SC ; Start 03/31/17 at 12:30 CJ THOMPSON NP March 31, 2017 12:29
[2017-03-31] MEDS ORDERED: BISACODYL (EC) 5 MG TAB PO PRN (12:30)
[2017-03-31] MEDS: THIAMINE 100 MG TAB PO SCH (13:34)
[2017-03-31] MEDS: ENOXAPARIN 40 MG/0.4 ML SYG SC SCH (13:34)
[2017-03-31] MEDS: VANCOMYCIN 1.25 GM in SOD CHLORIDE 0.9% 250 ML IVPB SCH ×2 (13:37→21:36)
[2017-03-31 17:56] LABS: TB-NIL 0.02 IU/mL
--- NOTE | 2017-03-31 18:52 | CARRPT ---
DATE OF PROCEDURE: 03/31/2017 PROCEDURE: Transesophageal echocardiogram. PATIENT HISTORY: This is a 46-year-old male with a history of IV drug use and with concern for tricuspid endocarditis. DESCRIPTION OF PROCEDURE: The patient was brought to the construction craft laborer holding area after informed consent. Anesthesia was available for sedation. After the patient was well sedated, patient was intubated with a JOALNTA probe. Images were obtained. JOLANTA probe was removed. There were no immediate complications. Study quality was good. 1. Left ventricle grossly normal with normal systolic function. 2. Mitral valve was grossly normal with trace regurgitation. 3. Aortic valve was trileaflet with mildly thickened with no significant regurgitation. 4. Tricuspid valve was poorly visualized. There is an echodense structure seen on the atrial side of the base of the tricuspid valve into the right atrium concerning for vegetation. 5. The right ventricle was poorly visualized with a possible linear echodense structure seen in the RVOT. 6. RV was poorly visualized. 7. Right atrium with trabeculations seen with echodense structure seen near the tricuspid valve, as mentioned above. 8. Interatrial septum appears intact with color flow Doppler. 9. Visualized portion of the descending aorta with minimal atheroma. DIAGNOSIS: High suspicion of tricuspid valve endocarditis. COMPLICATIONS: None. BLOOD LOSS: None. RECOMMENDATIONS: Antibiotics as per infectious disease. Would treat for endocarditis. Dictated By: KIEL OSORIO/IVAN Conf#: [id number] DID#: [id number] CC: TWYLA HOANG MD;*EndCC* MTDD
[2017-03-31] MEDS: HYDROCODONE/APAP (10/325) TAB PO PRN (19:43)
[2017-03-31] MEDS: LACTOBACILLUS RHAMNOSUS CAP PO SCH (21:35)
[2017-04-01] MEDS: CEFTRIAXONE 2 GM/NS 50 ML IVPB SCH (01:03)
[2017-04-01 06:12] LABS: ADD SCAN DIFF NO
[2017-04-01] MEDS: VANCOMYCIN 1.25 GM in SOD CHLORIDE 0.9% 250 ML IVPB SCH ×2 (06:36→14:00)
[2017-04-01 06:38] LABS: ABNORMAL IP MESSAGE 1; BASOPHIL # 0.1 10^3/ul (0.0-0.1); BASOPHILS % 0.8 % (0.0-2.0); EOSINOPHILS # 0.2 10^3/ul (0.0-0.5); EOSINOPHILS % 2.4 % (0.0-7.0); HEMATOCRIT 47.4 % (42.0-52.0); HEMOGLOBIN 16.4 g/dl (14.0-18.0); LYMPHOCYTES # 1.4 10^3/ul (0.8-2.9); LYMPHOCYTES % 17.1 % (15.0-51.0); MEAN CORPUSCULAR HEMOGLOBIN 30.9 pg (29.0-33.0); MEAN CORPUSCULAR HGB CONC 34.6 g/dl (32.0-37.0); MEAN CORPUSCULAR VOLUME 89.4 fl (82.0-101.0); MEAN PLATELET VOLUME 11.3 fl (7.4-10.4); MONOCYTE # 0.7 10^3/ul (0.3-0.9); MONOCYTES % 8.7 % (0.0-11.0); NEUTROPHIL # 5.1 10^3/ul (1.6-7.5); NEUTROPHILS % 64.4 % (39.0-77.0); RED CELL DISTRIBUTION WIDTH 14.6 % (11.5-14.5); WHITE BLOOD COUNT 7.9 10^3/ul (4.8-10.8)
[2017-04-01 06:39] LABS: PLATELET COUNT 104 10^3/UL (140-415)
[2017-04-01 07:16] VITALS: BP 120/87; RESP 20
[2017-04-01 07:33] LABS: THYROID STIMULATING HORMONE 2.75 MIU/L (0.465-4.680)
[2017-04-01 07:37] LABS: ALBUMIN 3.3 g/dl (3.3-4.9); ALBUMIN/GLOBULIN RATIO 0.91; BILIRUBIN,INDIRECT 0.6 mg/dl (0-1.1); BILIRUBIN,TOTAL 0.6 mg/dl (0.2-1.3); CALCIUM 8.6 mg/dl (8.4-10.2); CREATININE 0.65 mg/dl (0.61-1.24); MAGNESIUM 1.7 mg/dl (1.7-2.5); PHOSPHORUS 4.7 mg/dl (2.5-4.9); POTASSIUM 4.1 mmol/L (3.5-5.1); TOTAL PROTEIN 6.9 g/dl (6.1-8.1)
[2017-04-01] MEDS: NICOTINE (14 MG/24 HR) PATCH TRANSDERM SCH (09:44)
[2017-04-01] MEDS: LACTOBACILLUS RHAMNOSUS CAP PO SCH ×2 (09:44→21:19)
[2017-04-01] MEDS: THIAMINE 100 MG TAB PO SCH (09:44)
[2017-04-01] MEDS: ENOXAPARIN 40 MG/0.4 ML SYG SC SCH (09:45)
--- NOTE | 2017-04-01 13:58 | CONS ---
Date/Time of Note Date/Time of Note DATE: 04/01/17 TIME: 13:57 Assessment/Plan Assessment/Plan Chief Complaint/Hosp Course SUBJECTIVE: No acute changes. The patient is alert, feels better, no fevers MICROBIOLOGY: Blood, urine culture, and CSF cultures negative. ANTIMICROBIALS: The patient is on IV vancomycin and Rocephin. OBJECTIVE: GENERAL: Well-developed, well-nourished, middle-aged man who is alert , in no distress. HEENT: Head atraumatic, normocephalic. Sclerae anicteric. Buccal mucosa dry. NECK: Supple, trachea midline. CHEST: Rise symmetrical. Breath sounds clear. HEART: S1, S2. ABDOMEN: Soft, bowel tones present. EXTREMITIES: With right upper extremity edema and erythema. ASSESSMENT: 1. Systemic inflammatory response syndrome with fevers and leukocytosis. 2. Right upper extremity cellulitis secondary to self injection. 3. Polysubstance abuse. 4. Status post encephalopathy. 5. Tricuspid valve vegetations. PLAN: Clinically stable, needs to be on IV anx for 6 weeks, consider SNF placement, not a candidate to be dc to community with PICC 2 to ivda staff Problems: Consultation Date/Type/Reason Admit Date/Time March 28, 2017 at 09:59 Type of Consultation: id Exam/Review of Systems Vital Signs Vitals Vital Signs Date Time Temp Pulse Resp B/P Pulse Ox O2 Delivery O2 Flow Rate FiO2 04/01/17 07:16 97.8 73 20 120/87 98 03/31/17 12:49 Room Air 03/31/17 12:39 3.0 Intake and Output 03/31/17 03/31/17 04/01/17 15:00 23:00 07:00 Intake Total 400 ml 1103.33 ml 966.66 ml Balance 400 ml 1103.33 ml 966.66 ml Results Result Diagram: 04/01/17 0538 04/01/17 0538 Results 24 hrs Laboratory Tests Test 04/01/17 05:38 White Blood Count 7.9 Red Blood Count 5.30 Hemoglobin 16.4 Hematocrit 47.4 Mean Corpuscular Volume 89.4 Mean Corpuscular Hemoglobin 30.9 Mean Corpuscular Hemoglobin Concent 34.6 Red Cell Distribution Width 14.6 H Platelet Count 104 #L Mean Platelet Volume 11.3 H Neutrophils % 64.4 Lymphocytes % 17.1 Monocytes % 8.7 Eosinophils % 2.4 Basophils % 0.8 Nucleated Red Blood Cells % 0.0 Neutrophils # 5.1 Lymphocytes # 1.4 Monocytes # 0.7 Eosinophils # 0.2 Basophils # 0.1 Nucleated Red Blood Cells # 0.0 Sodium Level 135 Potassium Level 4.1 Chloride Level 103 Carbon Dioxide Level 26 Anion Gap 10 # Blood Urea Nitrogen 18 Creatinine 0.65 Glucose Level 97 Calcium Level 8.6 Phosphorus Level 4.7 Magnesium Level 1.7 Total Bilirubin 0.6 Direct Bilirubin 0.00 Indirect Bilirubin 0.6 Aspartate Amino Transf (AST/SGOT) 36 Alanine Aminotransferase (ALT/SGPT) 49 Alkaline Phosphatase 114 Total Protein 6.9 Albumin 3.3 Globulin 3.60 H Albumin/Globulin Ratio 0.91 Thyroid Stimulating Hormone (TSH) 2.750 Medications Medications Current Medications Ondansetron HCl 4 mg 4 mg Q6H PRN IV NAUSEA AND/OR VOMITING; Start 03/28/17 at 06:30 Ceftriaxone Sodium (Rocephin) 50 ml @ 100 mls/hr Q24H IVPB Last administered on 04/01/17 01:03; Admin Dose 100 MLS/HR; Start 03/30/17 at 01:00 Nicotine 1 patch 1 patch DAILY TRANSDERM Last administered on 04/01/17 09:44; Admin Dose 1 PATCH; Start 03/30/17 at 16:30 Vancomycin HCl/ Sodium Chloride (Vancocin/NS) 250 ml @ 83.333 mls/ hr Q8H IVPB Last administered on 04/01/17 06:36; Admin Dose 83.333 MLS/HR; Start 03/31/17 at 14:00 Famotidine (Pepcid) 20 mg HS PO Last administered on 03/31/17 21:35; Admin Dose 20 MG; Start 03/31/17 at 21:00 Morphine Sulfate (morphine) 2 mg Q6 PRN IV PAIN Last administered on 03/31/17 21:37; Admin Dose 2 MG; Start 03/31/17 at 18:00 Thiamine HCl (Vitamin B1) 100 mg DAILY PO Last administered on 04/01/17 09:44; Admin Dose 100 MG; Start 03/31/17 at 12:30 Lactobacillus Acidophilus/ Rhamnosus (Culturelle) 1 cap BID PO Last administered on 04/01/17 09:44; Admin Dose 1 CAP; Start 03/31/17 at 21:00 Bisacodyl (Dulcolax) 10 mg DAILY PRN PO CONSTIPATION; Start 03/31/17 at 12:30 Acetaminophen/ Hydrocodone Bitart ([place] (10/325)) 1 tab Q4H PRN PO PAIN Last administered on 03/31/17 19:43; Admin Dose 1 TAB; Start 03/31/17 at 12:30 Enoxaparin Sodium (Lovenox) 40 mg DAILY SC Last administered on 04/01/17 09:45 ; Admin Dose 40 MG; Start 03/31/17 at 12:30 CJ THOMPSON NP April 01, 2017 13:58
[2017-04-01] MEDS: VANCOMYCIN 1 GM in NS 250 ML IVPB SCH ×2 (15:24→21:19)
--- NOTE | 2017-04-01 16:17 | PN ---
Date/Time of Note Date/Time of Note DATE: 04/01/17 TIME: 16:14 Assessment/Plan VTE Prophylaxis VTE Prophylaxis Intervention: LMWH Lines/Catheters IV [facility] Urinary Cath still in place: No Assessment/Plan Chief Complaint/Hosp Course S: 04/01: No events. Tolerating antibiotic O: Vss PE No pallor Reg no m/r/g CTAB Bd ++ nt nd no R/RG No edema A/P 1. SIRS suspected sepsis. Source endocarditis vs cellulitis. Stable, cont atb' , check blood cx. -may DC to snf for antibiotic use/home health. 2. Rt upper extremity cellulitis 3. Chr IVDA 4. Substance abuse: Amphetamines, tobacco, past alcohol 5. Ftt/homeless. Placement options? Prefers to be on the streets on discharge. 6. Anemia 7. Ventral hernia Problems: Exam/Review of Systems Vital Signs Vitals Vital Signs Date Time Temp Pulse Resp B/P Pulse Ox O2 Delivery O2 Flow Rate FiO2 04/01/17 07:16 97.8 73 20 120/87 98 03/31/17 12:49 Room Air 03/31/17 12:39 3.0 Intake and Output 03/31/17 03/31/17 04/01/17 15:00 23:00 07:00 Intake Total 400 ml 1103.33 ml 966.66 ml Balance 400 ml 1103.33 ml 966.66 ml Results Result Diagram: 04/01/17 0538 04/01/17 0538 Results 24 hrs Laboratory Tests Test 04/01/17 05:38 04/01/17 13:20 White Blood Count 7.9 Red Blood Count 5.30 Hemoglobin 16.4 Hematocrit 47.4 Mean Corpuscular Volume 89.4 Mean Corpuscular Hemoglobin 30.9 Mean Corpuscular Hemoglobin Concent 34.6 Red Cell Distribution Width 14.6 H Platelet Count 104 #L Mean Platelet Volume 11.3 H Neutrophils % 64.4 Lymphocytes % 17.1 Monocytes % 8.7 Eosinophils % 2.4 Basophils % 0.8 Nucleated Red Blood Cells % 0.0 Neutrophils # 5.1 Lymphocytes # 1.4 Monocytes # 0.7 Eosinophils # 0.2 Basophils # 0.1 Nucleated Red Blood Cells # 0.0 Sodium Level 135 Potassium Level 4.1 Chloride Level 103 Carbon Dioxide Level 26 Anion Gap 10 # Blood Urea Nitrogen 18 Creatinine 0.65 Glucose Level 97 Calcium Level 8.6 Phosphorus Level 4.7 Magnesium Level 1.7 Total Bilirubin 0.6 Direct Bilirubin 0.00 Indirect Bilirubin 0.6 Aspartate Amino Transf (AST/SGOT) 36 Alanine Aminotransferase (ALT/SGPT) 49 Alkaline Phosphatase 114 Total Protein 6.9 Albumin 3.3 Globulin 3.60 H Albumin/Globulin Ratio 0.91 Thyroid Stimulating Hormone (TSH) 2.750 Vancomycin Level Trough 17.9 Medications Medications Current Medications Ondansetron HCl 4 mg 4 mg Q6H PRN IV NAUSEA AND/OR VOMITING; Start 03/28/17 at 06:30 Ceftriaxone Sodium (Rocephin) 50 ml @ 100 mls/hr Q24H IVPB Last administered on 04/01/17 01:03; Admin Dose 100 MLS/HR; Start 03/30/17 at 01:00 Nicotine (Nicoderm 14 Mg/ 24hr) 1 patch DAILY TRANSDERM Last administered on 09:44; Admin Dose 1 PATCH; Start 03/30/17 at 16:30 Famotidine (Pepcid) 20 mg HS PO Last administered on 03/31/17 21:35; Admin Dose 20 MG; Start 03/31/17 at 21:00 Morphine Sulfate (morphine) 2 mg Q6 PRN IV PAIN Last administered on 03/31/17 21:37; Admin Dose 2 MG; Start 03/31/17 at 18:00 Thiamine HCl (Vitamin B1) 100 mg DAILY PO Last administered on 04/01/17 09:44; Admin Dose 100 MG; Start 03/31/17 at 12:30 Lactobacillus Acidophilus/ Rhamnosus (Culturelle) 1 cap BID PO Last administered on 04/01/17 09:44; Admin Dose 1 CAP; Start 03/31/17 at 21:00 Bisacodyl (Dulcolax) 10 mg DAILY PRN PO CONSTIPATION; Start 03/31/17 at 12:30 Acetaminophen/ Hydrocodone Bitart ([place] (10/325)) 1 tab Q4H PRN PO PAIN Last administered on 03/31/17 19:43; Admin Dose 1 TAB; Start 03/31/17 at 12:30 Enoxaparin Sodium 40 mg 40 mg DAILY SC Last administered on 04/01/17 09:45; Admin Dose 40 MG; Start 03/31/17 at 12:30 Vancomycin HCl (Vancocin) 250 ml @ 125 mls/hr Q8 IVPB Last administered on 04/01t 15:24; Admin Dose 125 MLS/HR; Start 04/01/17 at 15:00 RONI MCINTOSH MD April 01, 2017 16:17
--- NOTE | 2017-04-01 17:12 | CONS ---
Date/Time of Note Date/Time of Note DATE: 04/01/17 TIME: 17:10 Assessment/Plan Assessment/Plan Additional Assessment/Plan SIRS Cellulitis Preserved ejection fraction High concern for endocarditis IV drug abuse -Patient status post transesophageal echocardiogram. Patient with echo dense structure in the tricuspid valve highly concerning for endocarditis. The valve appears intact with no significant regurgitation. Given his history, IV drug use and location of lesion, patient will need to be treated appropriately for endocarditis. Antibiotics as per infectious disease. I did discuss with the patient extensively regarding illicit drug cessation and risk of requiring open heart surgery if recurrent infections. Consultation Date/Type/Reason Admit Date/Time March 28, 2017 at 09:59 Type of Consultation: cv 24 HR Interval Summary Free Text/Dictation Denies chest pain, shortness of breath, palpitations Exam/Review of Systems Vital Signs Vitals Vital Signs Date Time Temp Pulse Resp B/P Pulse Ox O2 Delivery O2 Flow Rate FiO2 04/01/17 07:16 97.8 73 20 120/87 98 03/31/17 12:49 Room Air 03/31/17 12:39 3.0 Intake and Output 03/31/17 03/31/17 04/01/17 15:00 23:00 07:00 Intake Total 400 ml 1103.33 ml 966.66 ml Balance 400 ml 1103.33 ml 966.66 ml Exam No apparent distress Constitutional: alert, oriented Head: normocephalic Neck: supple Respiratory: other (Coarse breath sounds bilaterally, no wheezing) Cardiovascular: other (S1-S2 heard), regular rate and rhythm Gastrointestinal: bowel sounds, non-tender, soft Extremities: other (No edema) Results Result Diagram: 04/01/17 0538 04/01/17 0538 Results 24 hrs Laboratory Tests Test 04/01/17 05:38 04/01/17 13:20 White Blood Count 7.9 Red Blood Count 5.30 Hemoglobin 16.4 Hematocrit 47.4 Mean Corpuscular Volume 89.4 Mean Corpuscular Hemoglobin 30.9 Mean Corpuscular Hemoglobin Concent 34.6 Red Cell Distribution Width 14.6 H Platelet Count 104 #L Mean Platelet Volume 11.3 H Neutrophils % 64.4 Lymphocytes % 17.1 Monocytes % 8.7 Eosinophils % 2.4 Basophils % 0.8 Nucleated Red Blood Cells % 0.0 Neutrophils # 5.1 Lymphocytes # 1.4 Monocytes # 0.7 Eosinophils # 0.2 Basophils # 0.1 Nucleated Red Blood Cells # 0.0 Sodium Level 135 Potassium Level 4.1 Chloride Level 103 Carbon Dioxide Level 26 Anion Gap 10 # Blood Urea Nitrogen 18 Creatinine 0.65 Glucose Level 97 Calcium Level 8.6 Phosphorus Level 4.7 Magnesium Level 1.7 Total Bilirubin 0.6 Direct Bilirubin 0.00 Indirect Bilirubin 0.6 Aspartate Amino Transf (AST/SGOT) 36 Alanine Aminotransferase (ALT/SGPT) 49 Alkaline Phosphatase 114 Total Protein 6.9 Albumin 3.3 Globulin 3.60 H Albumin/Globulin Ratio 0.91 Thyroid Stimulating Hormone (TSH) 2.750 Vancomycin Level Trough 17.9 Medications Medications Current Medications Ondansetron HCl 4 mg 4 mg Q6H PRN IV NAUSEA AND/OR VOMITING; Start 03/28/17 at 06:30 Ceftriaxone Sodium (Rocephin) 50 ml @ 100 mls/hr Q24H IVPB Last administered on 04/01/17 01:03; Admin Dose 100 MLS/HR; Start 03/30/17 at 01:00 Nicotine (Nicoderm 14 Mg/ 24hr) 1 patch DAILY TRANSDERM Last administered on 09:44; Admin Dose 1 PATCH; Start 03/30/17 at 16:30 Famotidine (Pepcid) 20 mg HS PO Last administered on 03/31/17 21:35; Admin Dose 20 MG; Start 03/31/17 at 21:00 Morphine Sulfate (morphine) 2 mg Q6 PRN IV PAIN Last administered on 03/31/17 21:37; Admin Dose 2 MG; Start 03/31/17 at 18:00 Thiamine HCl (Vitamin B1) 100 mg DAILY PO Last administered on 04/01/17 09:44; Admin Dose 100 MG; Start 03/31/17 at 12:30 Lactobacillus Acidophilus/ Rhamnosus (Culturelle) 1 cap BID PO Last administered on 04/01/17 09:44; Admin Dose 1 CAP; Start 03/31/17 at 21:00 Bisacodyl (Dulcolax) 10 mg DAILY PRN PO CONSTIPATION; Start 03/31/17 at 12:30 Acetaminophen/ Hydrocodone Bitart ([place] (10/325)) 1 tab Q4H PRN PO PAIN Last administered on 5/8/17at 19:43; Admin Dose 1 TAB; Start 03/31/17 at 12:30 Enoxaparin Sodium 40 mg 40 mg DAILY SC Last administered on 04/01/17 09:45; Admin Dose 40 MG; Start 03/31/17 at 12:30 Vancomycin HCl (Vancocin) 250 ml @ 125 mls/hr Q8 IVPB Last administered on 04/01 15:24; Admin Dose 125 MLS/HR; Start 04/01/17 at 15:00 Sotero Marie DO April 01, 2017 17:12
[2017-04-01 20:45] VITALS: BP 121/83; RESP 21
[2017-04-01] MEDS: FAMOTIDINE 20 MG TAB PO SCH (21:19)
[2017-04-02] MEDS: CEFTRIAXONE 2 GM/NS 50 ML IVPB SCH (00:51)
[2017-04-02] MEDS: HYDROCODONE/APAP (10/325) TAB PO PRN (03:02)
[2017-04-02] MEDS: VANCOMYCIN 1 GM in NS 250 ML IVPB SCH (04:35)
[2017-04-02] MEDS: morphine 2 MG INJ IV PRN (04:35)
[2017-04-02 06:23] LABS: ADD SCAN DIFF NO
[2017-04-02 06:31] LABS: ABNORMAL IP MESSAGE 1; BASOPHIL # 0.1 10^3/ul (0.0-0.1); BASOPHILS % 1.4 % (0.0-2.0); EOSINOPHILS # 0.2 10^3/ul (0.0-0.5); EOSINOPHILS % 2.9 % (0.0-7.0); HEMATOCRIT 46.9 % (42.0-52.0); HEMOGLOBIN 16.8 g/dl (14.0-18.0); LYMPHOCYTES # 1.2 10^3/ul (0.8-2.9); LYMPHOCYTES % 15.1 % (15.0-51.0); MEAN CORPUSCULAR HEMOGLOBIN 31.8 pg (29.0-33.0); MEAN CORPUSCULAR HGB CONC 35.8 g/dl (32.0-37.0); MEAN CORPUSCULAR VOLUME 88.7 fl (82.0-101.0); MEAN PLATELET VOLUME 11.4 fl (7.4-10.4); MONOCYTE # 0.7 10^3/ul (0.3-0.9); MONOCYTES % 9.2 % (0.0-11.0); NEUTROPHILS % 63.1 % (39.0-77.0); PLATELET COUNT 110 10^3/UL (140-415); RED BLOOD COUNT 5.29 10^6/ul (4.70-6.10); RED CELL DISTRIBUTION WIDTH 14.4 % (11.5-14.5)
[2017-04-02 07:03] LABS: ALBUMIN 3.4 g/dl (3.3-4.9); ALBUMIN/GLOBULIN RATIO 0.94; BILIRUBIN,INDIRECT 0.6 mg/dl (0-1.1); BILIRUBIN,TOTAL 0.6 mg/dl (0.2-1.3); CALCIUM 8.7 mg/dl (8.4-10.2); CREATININE 0.59 mg/dl (0.61-1.24); POTASSIUM 4.2 mmol/L (3.5-5.1)
[2017-04-02 08:06] VITALS: BP 117/79; RESP 18
[2017-04-02] MEDS: THIAMINE 100 MG TAB PO SCH (08:48)
[2017-04-02] MEDS: ENOXAPARIN 40 MG/0.4 ML SYG SC SCH (08:48)
[2017-04-02] MEDS: LACTOBACILLUS RHAMNOSUS CAP PO SCH (08:48)
[2017-04-02] MEDS: NICOTINE (14 MG/24 HR) PATCH TRANSDERM SCH (08:49)
--- NOTE | 2017-04-02 13:23 | DS ---
DATE OF ADMISSION: 03/28/2017 DATE OF DISCHARGE: 04/02/2017 DATE OF : [birth year] DATE OF ADMISSION: 03/28/2017 DATE AMA: 04/02/2017 PRIMARY CARE PHYSICIAN: Unknown. ELECTRIC RANGE ASSEMBLER: Frank Enamorado. DIAGNOSIS ON ADMISSION: Systemic inflammatory response syndrome. DIAGNOSES ON DISCHARGE: 1. Systemic inflammatory response syndrome, suspected sepsis. Endocarditis likely. 2. Probable endocarditis. 3. Cellulitis. 4. Chronic iron deficiency anemia. 5. Chronic substance abuse with amphetamine, tobacco and past alcohol. 6. Failure to thrive, homelessness. 7. Anemia. 8. Ventral hernia. HOSPITAL COURSE: This is a 47-year-old gentleman who was admitted with fevers and found to have marilou picion of endocarditis via 2D echo and JOLANTA. The risk of stroke, sepsis was discussed with the patie nt yesterday. I made him aware that there is a chance we can treat this, however, there is also a c say of recurrence if he did not follow medical care. He is aware of risks, benefits of treatment. Today, he went AMA. Today his birthday and I am sure he will be back in the ER in the next week. JOLANTA was read as high suspicion of tricuspid and pulmonary valve endocarditis. 2D echo read as EF of 65%, mild concentric LVH. LABORATORY DATA: White cell count of 8, hemoglobin and hematocrit of 16 and 46, platelets of 110 an d ESR 35. INR 1.2. LP study showed RBCs but no white cells or lymphocytes to an extent, therefore this was a traumatic tap. Serology negative for hepatitis C, HIV and QuantiFERON gold. Tox screen p ositive for amphetamines. Vancomycin dosed by pharmacy. CMP unremarkable except for AST and ALT of 66 and 75, and alkaline phosphatase of 136. TSH of 2.71. A1c of 5.1. Blood cultures actually di d not show any growth after 5 and 2 days. MRSA nares negative. Blood cultures negative. CAT scan of brain: No acute process. Chest x-ray: Hypoventilatory atelectasis, no acute process. Dictated By: RONI MCINTOSH MD AC/NTS Conf#: [id number] DID#: [id number]
== END 2017-04-02 10:35 | disposition left against medical advice (07) | DRG 871 ==
LOC: E/R 18:41 → PP2 03-28 09:59
PROVIDERS: ADMIT Internal Medicine Pulmonary Disease; ATTEND Internal Medicine Pulmonary Disease
PROC: 009U3ZX Drainage of Spinal Canal, Percutaneous Approach, Diagnostic (ICD-10-PCS; principal; 2017-03-28)
DX: A41.9 Sepsis, unspecified organism (principal); I33.9 Acute and subacute endocarditis, unspecified; G93.41 Metabolic encephalopathy; L03.113 Cellulitis of right upper limb; F15.10 Other stimulant abuse, uncomplicated; R65.20 Severe sepsis without septic shock; F10.10 Alcohol abuse, uncomplicated; R51 Headache; F17.200 Nicotine dependence, unspecified, uncomplicated; Z59.0 Homelessness; D64.9 Anemia, unspecified; K43.9 Ventral hernia without obstruction or gangrene
CPT/HCPCS: 36415; 70450; 71010; 80053; 80202; 80306; 80307; 81003; 82945; 83036; 83605; 83735; 84100; 84157; 84443; 84484; 85025; 85610; 85651; 85730; 86480; 86703; 86803; 87040; 87070; 87081; 87086; 87340; 89050; 93005; 93306; 93312; 93325; 96365; 96366; 96367; 96375; 96376; J0290; J1100; J1650; J2270; J3370; J7030; J7050